=== PATIENT | female | born 1985 | race Caucasian/White ===

== ENCOUNTER 2021-10-09 18:36 | Emergency (ER) | payer MEDICAID ==
[~2021-10-09] VITALS: Ht 160 cm; Wt 82.0 kg
[2021-10-09] MEDS: METOCLOPRAMIDE HCL 10MG/2ML VIAL IV STA (19:09)
[2021-10-09] MEDS: ACETAMINOPHEN 325MG TABLET PO STA (19:09)
[2021-10-09] MEDS: PANTOPRAZOLE SODIUM 40 MG/VIAL IV STA (19:09)
[2021-10-09] MEDS: SODIUM CHLORIDE 0.9% 1,000 ML IV ONE (19:09)
[2021-10-09] MEDS: MAGNESIUM/ALUMINUM HYDROXIDE/SIMETHICONE 30ML UDC PO STA (19:09)
[2021-10-09 19:40] VITALS: BP 122/82
[2021-10-09 19:47] LABS: BASOPHILS % 0.8 % (0.0-2.0); HEMATOCRIT. 36.3 % (36.0-48.0); HEMOGLOBIN. 12.2 g/dL (12.0-16.0); LYMPHOCYTES % 19.9 % (20.0-50.0); MEAN CORPUSCULAR HEMOGLOBIN 26.8 pg (28.0-32.0); MEAN CORPUSCULAR VOLUME 79.7 fL (81.0-99.0); MEAN PLATELET VOLUME 8.6 fl (7.4-10.4); MONOCYTES % 5.7 % (2.0-8.0); NEUTROPHILS % 72.6 % (40.0-76.0); PLATELET 291 x1000/uL (130-400); RED BLOOD CELL COUNT 4.55 mill/uL (4.2-5.4); RED CELL DISTRIBUTION WIDTH 15.9 % (11.6-14.6)
[2021-10-09 19:50] LABS: CHLORIDE 109 mEq/L (98-107)
[2021-10-09 19:56] LABS: ETHANOL BLOOD < 10 mg/dL
[2021-10-09 20:05] LABS: HCG SCREEN NEGATIVE
[2021-10-09 20:05] LABS: CLARITY URINE CLEAR (CLEAR); COLOR URINE YELLOW (YELLOW); KETONES URINE NEGATIVE (NEGATIVE); LEUKOCYTE ESTERASE URINE NEGATIVE (NEGATIVE); NITRITE URINE NEGATIVE (NEGATIVE); OCCULT BLOOD URINE 3+ (NEGATIVE); PROTEIN URINE NEGATIVE (NEGATIVE); SPECIFIC GRAVITY URINE 1.019 (1.005-1.030); UROBILINOGEN URINE 0.2 E.U./dL (0.2-1.0)
[2021-10-09 20:26] LABS: *AMPHETAMINES SCREEN URINE NEGATIVE (NEGATIVE); *BARBITURATES SCREEN URINE NEGATIVE (NEGATIVE); METHADONE URINE SCREEN NEGATIVE (NEGATIVE); OPIATES URINE SCREEN NEGATIVE (NEGATIVE); PHENCYCLIDINE URINE SCREEN NEGATIVE (NEGATIVE)
[2021-10-09 20:27] LABS: *BENZODIAZEPINES SCREEN URINE NEGATIVE (NEGATIVE); *COCAINE SCREEN URINE NEGATIVE (NEGATIVE)
[2021-10-09 20:30] LABS: CANNABINOID URINE SCREEN PRESUMTIVE POSITIVE (NEGATIVE)
[2021-10-09] MEDS ORDERED: NAPR-1074 MT (21:42)
== END 2021-10-09 22:07 | disposition home or self-care (01) ==
LOC: ER 18:36
DX: N93.9 Abnormal uterine and vaginal bleeding, unspecified (principal); F12.10 Cannabis abuse, uncomplicated; Z13.9 Encounter for screening, unspecified
CPT/HCPCS: 36415; 76830; 76856; 80053; 80305; 80320; 81003; 83605; 83690; 84703; 85025; 96361; 96374; 96375; 99284; C9113; J2765; J7030; G0480